=== PATIENT | female | born 2000 | race Caucasian/White ===

== ENCOUNTER 2023-04-21 06:56 | Inpatient (IN) | payer OTHER, MEDICAID, SELFPAY ==
[2023-04-21] VITALS (34 sets, daily range): BP systolic 102–157; BP diastolic 50–98; PULSE 81–127; RESP 14–15; TEMP 36.2–36.7; O2SAT 84–100; BMI 40.6
[2023-04-21] MEDS: Lactated Ringers 1,000 ML 50 ML IV (08:10)
[2023-04-21] MEDS: Oxytocin 15 Units/NS 250ml 15 UNITS/250 ML IV.SOLN 2 UNITS IV (08:20)
[2023-04-21 08:41] LABS: Absolute Lymphocyte Count 1.94 X10^3/uL (0.83-4.51); Absolute Neutrophil Count 6.4 X10^3/uL (2.0-7.7); Basophil# 0.02 X10^3/uL; Basophil% 0.2 % (0-1); Eosinophil# 0.09 X10^3/uL; Hemoglobin 10.3 g/dL (12.0-15.0); Lymphocyte # 1.94 X10^3/ul (0.83-4.51); Lymphocyte % 21.5 % (19-41); Mean Corp Hgb Conc 29.4 g/dL (32-36); Mean Corpuscular Hgb 24.1 pg (27.0-32.0); Mean Platelet Vol. 11.4 fl (6.2-12.0); Monocyte# 0.52 X10^3/uL; Monocyte% 5.8 % (0-10); NRBC Flagged by Analyzer 0.2 % (0-5); Neutrophil # 6.41 X10^3/uL (2.7-7.7); Neutrophil % 70.9 % (47-70); POSITIVE COUNT YES; Platelet Count 161 K/mm3 (150-450); RBC Distribution Width CV 14.7 % (11.6-14.6); RBC Distribution Width SD 43.5 fl (35.1-43.9); Red Blood Count 4.27 M/mm3 (4.2-5.4)
[2023-04-21] MEDS: LACTATED RINGERS 500 ML 999 ML IV (09:00)
[2023-04-21 09:09] LABS: Differential Indicated SCAN CRITERIA MET
[2023-04-21 09:10] LABS: Differential Comment SCANNED
[2023-04-21 09:11] LABS: Syphilis Antibodies Non-reactive
[2023-04-21 09:54] LABS: Bedside Glucose 104 mg/dL (74-106)
[2023-04-21] MEDS: fentaNYL-bupivacaine (epidural) 100 ML BAG EPIDURAL (10:32)
[2023-04-21 11:38] LABS: Bedside Glucose 83 mg/dL (74-106)
[2023-04-21] MEDS: Ondansetron 4 MG/2 ML Vial IV (12:39)
--- NOTE | 2023-04-21 13:41 | EX.PCM.OBRPT ---
Assessment & Plan (1) (spontaneous vaginal delivery): (2) Single live : Maternal Data Information Final ALTON: 05/01/23 Gestational age: 38 5/7 Vaginal Delivery Maternal Presentation Maternal Presentation: Medically Indicated Induction Type of Induction: Pitocin and Amniotomy Operative Information Date of Procedure: 04/21/23 Pre-Operative Diagnosis: labor Post-Operative Diagnosis: same Surgery / Procedure Performed: Spontaneous Vaginal Delivery Type of Anesthesia: Epidural Special Medications: none Drain: [place] to straight drain Estimated Blood Loss: 300 Time of Delivery: 13:29 Findings Description of Procedure: A vigorous male was delivered SAHIL over an intact perineum. The remainder the infant was delivered with maternal pushing and gentle traction only in less than 15 seconds. The Pitocin infusion was initiated for active management of the third stage. The cord was clamped and cut after 1 minute. The was attended to by the waiting nursing staff. The placenta was delivered spontaneously and intact. The cervix and vagina were intact. Sponge and needle counts were correct. A vaginal sweep was completed by me. y Presentation: SAHIL Amniotic Membrane Rupture Type: Artificial Amniotic Fluid Description: Clear Placental Delivery Description: Spontaneous Placenta Disposition: [facility] Cord Vessel Description: 3 Vessels Cord Entanglement: None A Gender: Male (Justin) (1 minute): 8 (5 minute): 9 Delayed Cord Clamping: Yes Post Vaginal Delivery Medications Given After Delivery: IV Pitocin Episiotomy Description: None Laceration: None Complication Complications: None
--- NOTE | 2023-04-21 13:45 | PCM.HP.OB ---
HPI - General General Date of Admission: 04/21/23 Date of Service: 04/21/23 Chief Complaint: induction HPI Narrative CINDY COULTER, is a 22 F 4 para 2-0-1-2 presents at 38-4/7 weeks gestation for induction of labor due to polyhydramnios, LGA fetus, and gestational diabetes class A2 on insulin, not well controlled. has been complicated type by maternal obesity with BMI of 40, history of shoulder dystocia, and bacterial vaginosis. Maternal Data Information Final ALTON: 05/01/23 Gestational age: 38 4/7 PFSH PFSH Home Medications insulin NPH and regular human 10 units PCHS diabetic 04/21/23 [History Last Taken Unknown] insulin NPH and regular human 14 units BREAKFAST diabetic 04/21/23 [History Last Taken Unknown] Allergy/AdvReac Type Severity Reaction Status Date / Time No Known Allergies Allergy Verified 04/21/23 08:21 Social History Smoking Status: Never smoker History Elective abortions Hx Para 2 Spontaneous abortions Hx # Term Pregnancies Ectopic pregnancies Hx # Pregnancies Multiple births # of living children ROS Constitutional Constitutional: Denies fatigue, fever(s) or malaise Eyes Eyes: Denies change in vision ENT HEENT: Denies dizziness or headache(s) Cardiovascular Cardiovascular: Denies chest pain, dyspnea or lightheadedness Respiratory/Chest Respiratory/Chest: Denies cough or dyspnea Gastrointestinal Gastrointestinal: Denies change in bowel habits Genitourinary Genitourinary: Denies burning urination or genital lesions Integumentary Integumentary: Denies rash Neurologic Neurologic: Denies confusion, dizziness, headache(s), numbness or weakness Vital Signs Vital Signs Vital Signs: 04/21/23 07:14 04/21/23 07:14 04/21/23 08:14 Temperature Temperature Source Pulse Rate 90 Blood Pressure 138/89 H 135/84 H BP Systolic 138 135 BP Diastolic 89 84 Pulse Ox 04/21/23 08:14 04/21/23 08:52 04/21/23 08:52 Temperature Temperature Source Pulse Rate 100 96 Blood Pressure 123/66 H BP Systolic 123 BP Diastolic 66 Pulse Ox 04/21/23 09:42 04/21/23 09:42 04/21/23 09:50 Temperature Temperature Source Pulse Rate 97 Blood Pressure 140/98 H 124/61 H BP Systolic 140 124 BP Diastolic 98 61 Pulse Ox 04/21/23 09:50 04/21/23 10:19 04/21/23 10:19 Temperature Temperature Source Pulse Rate 93 96 Blood Pressure 139/82 H BP Systolic 139 BP Diastolic 82 Pulse Ox 04/21/23 10:20 04/21/23 10:20 04/21/23 10:24 Temperature Temperature Source Pulse Rate 98 Blood Pressure 157/85 H BP Systolic 157 BP Diastolic 85 Pulse Ox 100 04/21/23 10:24 04/21/23 10:23 04/21/23 10:25 Temperature Temperature Source Pulse Rate 107 H 105 H Blood Pressure BP Systolic BP Diastolic Pulse Ox 84 04/21/23 10:25 04/21/23 10:30 04/21/23 10:30 Temperature Temperature Source Pulse Rate 102 H Blood Pressure 129/67 H BP Systolic 129 BP Diastolic 67 Pulse Ox 100 04/21/23 10:30 04/21/23 10:34 04/21/23 10:39 Temperature Temperature Source Pulse Rate Blood Pressure 129/71 H 130/67 H BP Systolic 129 130 BP Diastolic 71 67 Pulse Ox 100 04/21/23 10:39 04/21/23 10:45 04/21/23 10:45 Temperature Temperature Source Pulse Rate 95 117 H Blood Pressure 109/59 L BP Systolic 109 BP Diastolic 59 Pulse Ox 04/21/23 10:49 04/21/23 10:49 04/21/23 10:50 Temperature Temperature Source Pulse Rate 90 86 Blood Pressure 102/50 L BP Systolic 102 BP Diastolic 50 Pulse Ox 04/21/23 10:50 04/21/23 10:54 04/21/23 10:54 Temperature Temperature Source Pulse Rate 96 Blood Pressure 116/71 BP Systolic 116 BP Diastolic 71 Pulse Ox 97 04/21/23 10:59 04/21/23 10:59 04/21/23 11:05 Temperature Temperature Source Pulse Rate 81 Blood Pressure 122/73 H 131/76 H BP Systolic 122 131 BP Diastolic 73 76 Pulse Ox 04/21/23 11:05 04/21/23 11:35 04/21/23 11:35 Temperature Temperature Source Pulse Rate 85 82 Blood Pressure 136/80 H BP Systolic 136 BP Diastolic 80 Pulse Ox 04/21/23 12:07 04/21/23 12:07 04/21/23 12:35 Temperature Temperature Source Pulse Rate 100 Blood Pressure 114/57 L 114/60 BP Systolic 114 114 BP Diastolic 57 60 Pulse Ox 04/21/23 12:35 04/21/23 13:00 04/21/23 13:00 Temperature 97.4 F L Temperature Source Temporal Pulse Rate 89 Blood Pressure BP Systolic BP Diastolic Pulse Ox 04/21/23 13:43 04/21/23 13:43 Temperature Temperature Source Pulse Rate 100 Blood Pressure 130/65 H BP Systolic 130 BP Diastolic 65 Pulse Ox Weight Weight: 114.022 kg Body Mass Index (BMI) 40.6 Physical Exam Narrative 1+ edema Const alert and no apparent distress General Appearance: cooperative HEENT normocephalic Resp normal respiratory effort Cardio regular rate GI soft to palpation GI Narrative: gravid, nontender, appropriate for gestational age Extremity no calf tenderness Skin no wounds Rashes: No rashes noted Psych activity/motor behavior normal Labs Labs Labs: Blood Type O POSITIVE Antibody Screen NEGATIVE Hct 35.0 % (37-47) L Hgb 10.3 g/dL (12.0-15.0) L Syphilis Total Ab Non-reactive Assessment & Plan (1) 38 weeks gestation of : PLAN: Risk benefits alternatives to induction labor him discussed with the patient, her questions were answered to her satisfaction she desires to proceed. We will monitor blood sugars. Administer insulin drip if needed. Estimated weight is less than her previous deliveries. She understands that even with estimated weight less than her previous deliveries the risk of shoulder dystocia. She desires induction of labor and vaginal delivery over primary section. Estimated weight is less than 4500 g and pelvis clinically adequate to expect vaginal delivery. (2) Supervision of other high risk pregnancies, third trimester: (3) Gestational diabetes requiring insulin:
[2023-04-21] MEDS: Oxytocin 15 Units/NS 250ml 15 UNITS/250 ML IV.SOLN 83 UNITS IV (14:16)
[2023-04-21] MEDS: Ibuprofen 600 MG Tablet PO (14:29)
[2023-04-21 15:35] LABS: Bedside Glucose 94 mg/dL (74-106)
[2023-04-21] MEDS: Acetaminophen 500 MG Tablet 1000 MG PO (18:17)
[2023-04-22] VITALS (9 sets, daily range): BP systolic 117–140; BP diastolic 70–92; PULSE 73–87; RESP 15–87; TEMP 35.8–36.4; O2SAT 98
[2023-04-22] MEDS: Ibuprofen 600 MG Tablet PO ×2 (01:02→07:46)
[2023-04-22 06:35] LABS: Bedside Glucose 91 mg/dL (74-106)
[2023-04-22] MEDS: Acetaminophen 500 MG Tablet 1000 MG PO (07:47)
--- NOTE | 2023-04-22 08:49 | DCINST_ITS ---
Discharge Instructions Follow Up Care Test Results: Test results from this visit will be discussed in further detail at your follow- up appointment, if applicable. Discharge Plan Admission Admit Date/Time: 04/21/23 06:56 Attending Provider: Maria De Jesus Jacobs Primary Care Provider: Abigail Barth Consulting Providers: Beatris Medeiros Discharge Orders/Prescriptions Prescriptions: New acetaminophen 500 mg Tablet 1,000 mg PO Q6H PRN PRN (Reason: Pain 1-10 Or Fever) Qty: 0 0RF ibuprofen 600 mg Tablet 600 mg PO Q6H PRN PRN (Reason: Pain Score 1-3) Qty: 0 0RF Discontinued insulin NPH and regular human 14 units BREAKFAST insulin NPH and regular human 10 units [facility] Referrals / Follow Up: Abigail Barth MD [Primary Care Provider] - Disposition Disposition (needs filled in before D/C Order can be placed): Home, Self Care
--- NOTE | 2023-04-22 08:49 | PN_ITS ---
Subjective Subjective patient seen at bedside, doing well. Patient reports good pain control. lochia mild. Objective Data Objective Data Vital Signs: Vital Signs Temp Pulse Resp BP Pulse Ox O2 Del Method 96.5 F L 77 16 117/70 97 Room Air 04/22/23 07:49 04/22/23 07:49 04/22/23 07:49 04/22/23 07:49 04/21/23 19:38 04/22/23 04:16 Oxygen Delivery Method Room Air Weight: 114.022 kg Body Mass Index (BMI) 40.6 Intake & Output: Intake and Output for Last 24 Hours 04/20/23 04/21/23 04/22/23 23:59 23:59 23:59 Intake Total 2000.00 / 2000.00 Output Total 1350 / 1350 Balance 650.00 / 650.00 Lab / Micro Data Result Diagrams: 04/21/23 08:10 Labs: Laboratory Results - last 24 hr 04/21/23 08:10: WBC 9.0, RBC 4.27, Hgb 10.3 L, Hct 35.0 L, MCV 82.0, MCH 24.1 L, MCHC 29.4 L, RDW Std Deviation 43.5, RDW Coeff of Bello 14.7 H, Plt Count 161, MPV 11.4, Immature Gran % (Auto) 0.600, Neut % (Auto) 70.9 H, Lymph % (Auto) 21.5, [place] % (Auto) 5.8, Eos % (Auto) 1.0, Baso % (Auto) 0.2, Absolute Neuts (auto) 6.4, Absolute Lymphs (auto) 1.94, Nucleated RBC % 0.2, Differential Comment SCANNED 04/21/23 08:10: Blood Type O POSITIVE, Antibody Screen NEGATIVE 04/21/23 08:10: Syphilis Total Ab Non-reactive 04/21/23 08:49: POC Glucose 104 04/21/23 10:57: POC Glucose 83 04/21/23 15:11: POC Glucose 94 04/22/23 06:17: POC Glucose 91 Physical Exam Const alert and oriented x3 General Appearance: cooperative HEENT normocephalic Neck General: normal visual inspection GI soft to palpation and non-distended GI Narrative: Fundus firm Extremity normal to inspection and no calf tenderness Skin no rashes or lesions noted Neuro oriented x3 and CN's II-XII intact bilaterally Psych mental status grossly normal Assessment & Plan Assessment/Plan (1) Gestational diabetes requiring insulin: (2) Supervision of other high risk pregnancies, third trimester: (3) 38 weeks gestation of : (4) Single live : (5) (spontaneous vaginal delivery): PLAN: Plan PPD#1 , Doing well Routine care pain mgmt ambulation dc home
--- NOTE | 2023-04-22 15:45 | CASEMGMT ---
Social Work Assessment Labor and Delivery Unit Date of Referral: 04.21.23 Time of Referral: 1840 Referred By: Dr. Maria De Jesus Jacobs Date of Intervention: 04.22.23 Time of Intervention: Approximately 2430-154 Reason for Referral: maternal mental health - depression, anxiety, and depression. History obtained from: medical records, mother of baby (MOB) Kavita Patterson and father of baby (FOB) Bienvenido Hameed. Household composition: MOB, FOB, and older children. Home situation is reported as safe and adequate. Patient's parent/guardian status: DEN is a 22 year old female, to the FOB (age 25) for the last 3 years. Together for 7 years in total. During private conversation with DEN, MOB denies any form of abuse or domestic violence in this relationship. MOB and FOB now have 3 children together: Melvin (11.22.19), Shawn (2.28.22), and Justin Hameed (6..). Medical History: DEN is G4, P2 to 3 after delivering Cristóbal. One first trimester miscarriage. DEN was at transfer of care at 32 weeks to [place] from [facility]. No reported issues with PNC attendance. Cristóbal weighed 4155 grams at . Apgars 8 and 9 at 1 and 5 minutes of life respectively. Educational Status: DEN reports some college. Denies any issues with reading, writing, or learning. 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 ALEXANDRU works as a Merchandising Execution Associate at [employer]. No reported financial concerns at this time. Infant Supplies: MOB reports to have needed infant supplies to care for baby at home including safe sleep spaced, car seat, clothing, diapers, and wipes. MOB is going to provide breast milk from bottle. Childcare/Caregiver(s): MOB and FOB. Reports to have family to assist with care when at work. Transportation: No reported issues. Programs/Agencies Involved: Active with [place]. Children Services/Legal Issues: No legal issues, and no reported involvement with [facility]. Behavioral Health Issues: Mental Health History: MOB reports history of depression, anxiety, and Depression after both older children. DEN reports was on Lexapro during this , but ran out of refills. [place] Depression screen completed this date at score of 13, which is above threshold for likely depression. MOB indicated hardly ever to question #10, regarding thoughts of harming myself have occurred to me. MOB reports history of thinking of suicide, no planning or attempts, but more passive thoughts of dying and that would be okay not being around. MOB reports children are a reason to keep going, as well as understand the pain that suicide can do to the those left behind. MOB denies any current thoughts of suicide, or thoughts of dying. Reports would be able to speak with family thoughts would arise. *Note, MOB reports history of treatment with Zoloft and Prozac, both with poor results.* Substance Use History: MOB denies. Family History: MOB's father with history of substance use issues. MOB's sister with history of depression, anxiety, and a suicide attempt (during the timeframe of this , back in fall). Drug Screens: None noted in record. Family/Social Stressors: Closely spaced pregnancies, unplanned though accepted. Maternal history of PPD, with current symptoms present. MOB's sister with attempted suicide during MOB's with Justin. Support Systems: FOB, parents, and MOB's sister. Depression/Shaken Baby/Safe Sleeping: Reviewed shaken baby prevention, safe sleeping, and PPD/PPA. Reviewed risks, importance of seeking out help and care should symptoms become distressing. ASSESSMENT: Met with MOB and FOB in room, introducing to self and social work role. MOB and FOB both participated in conversation. FOB presented as supportive and in tune with MOB's anxiety, speaking in a supportive way of MOB. MOB and FOB reports to have support from family, FOB gets to take time off fo work to help at home, and no needs with supplies at home. When speaking with MOB alone, MOB tearful discussing history of depression, anxiety, and MOB's sister's emotional health struggles. MOB reports has been anxious the last couple of weeks about the delivery, and baby being okay. Now worry about SIDS and vaccines (does vaccinate but waits until one year to start). MOB admits when feeling down does think about not being here anymore, but denies any intent or plan for suicide; no history of attempts. MOB report her sister's attempt has put things in perspective, and does not want to hurt others as MOB was hurt and saddened by the sister's attempt. MOB report willingness to start Lexapro again (RN updated MOB and this comic book writer that doctor willing write a prescription for this at home going). MOB reports to have a PCP appointment soon and will follow up with PCP on ongoing management of Lexapro. Willing to accept information on counseling resources, and grounding techniques. MOB expressed appreciation of SW visit. Much emotional support, and supportive encouragement provided. [facility] resource list given, PPD packet, and list of counseling agencies. PLAN: MOB and infant to home, MOB restarting antidepressants, resources given for home going. No other services requested or indicated. -VALENTIN Oreilly, CITY DISTRIBUTION CLERK
== END 2023-04-22 16:33 | disposition home or self-care (01) | DRG 807 ==
PROVIDERS: Admitting Provider Obstetrics & Gynecology; PCP Family Medicine; Referring Provider Obstetrics & Gynecology; Visit Provider Obstetrics & Gynecology
DX: O99.214 Obesity complicating childbirth (principal); Z37.0 Single live birth; E66.8 Other obesity; O40.3XX0 Polyhydramnios, third trimester, not applicable or unspecified; O24.424 Gestational diabetes mellitus in childbirth, insulin controlled; O36.63X0 Maternal care for excessive fetal growth, third trimester, not applicable or unspecified; Z3A.38 38 weeks gestation of pregnancy; O26.23 Pregnancy care for patient with recurrent pregnancy loss, third trimester
CPT/HCPCS: 59025; 59050; 82962; 85025; 86780; 86850; 86900; 86901; 99221; J7120; G0378; J2405